=== PATIENT | male | born 1965 | race Caucasian/White ===

== ENCOUNTER 2021-06-01 06:47 | Day surgery (SDC) | payer MEDICAID ==
[2021-05-31 15:55] LABS: BASOPHILS # (AUTO) 0.1 X10'3 (0-0.2); BASOPHILS % (AUTO) 1.2 % (0-1); EOSINOPHILS # (AUTO) 0.4 X10'3 (0-0.9); EOSINOPHILS % (AUTO) 7.6 % (0-6); LYMPHOCYTES # (AUTO) 1.5 X10'3 (1.1-4.8); LYMPHOCYTES % (AUTO) 27.8 % (21-51); MEAN CORPUSCULAR HEMOGLOBIN 29.7 PG (27.0-31.0); MEAN CORPUSCULAR HGB CONC 33.7 g/dL (33.0-36.5); MEAN CORPUSCULAR VOLUME 88.1 FL (78-98); MONOCYTES # (AUTO) 0.4 X10'3 (0-0.9); NEUTROPHILS % (AUTO) 55.4 % (42-75); PRE OP HEMATOCRIT 42.2 % (42.0-52.0); PRE OP HEMOGLOBIN 14.2 g/dL (14.0-17.9); PRE OP PLATELET COUNT 264 X10'3 (140-440); RED BLOOD COUNT 4.79 X10'6 (4.70-6.10); RED CELL DISTRIBUTION WIDTH 14.9 % (11.5-14.5)
[2021-05-31 16:05] LABS: ALBUMIN 4.1 G/DL (3.4-5.0); ALBUMIN/GLOBULIN RATIO 1.2 (1.1-1.5); ALKALINE PHOSPHATASE 72 IU/L (46-116); BLOOD UREA NITROGEN 17 MG/DL (7-18); BUN/CREATININE RATIO 18.7 (5.4-32.0); CALCIUM 9.1 MG/DL (8.5-10.1); CHLORIDE 104 MMOL/L (99-107); CREATININE 0.91 MG/DL (0.60-1.10); PRE OP ALT 31 U/L (30-65); PRE OP ANION GAP 7 (8-16); PRE OP AST 15 U/L (10-37); PRE OP BILIRUB, TOTAL 0.3 MG/DL (0.0-1.0); PRE OP GLUCOSE 113 MG/DL (70-104); PRE OP POTASSIUM 3.9 MMOL/L (3.4-5.1); PRE OP SODIUM 140 MMOL/L (135-145); TOTAL CARBON DIOXIDE 29.1 MMOL/L (24-32); TOTAL PROTEIN 7.5 G/DL (6.4-8.2); eGFR 86 ML/MIN
[2021-06-01] VITALS (13 sets, daily range): BP systolic 110–136; BP diastolic 70–99
[~2021-06-01] VITALS: Ht 177.8 cm; Wt 80.1 kg
[~2021-06-01 06:47] MED LIST: NO HOME MEDS; cefazolin/dext.iso 2gm/50ml IV ONE; famotidine 20mg tablet PO ONE; ringers solution, lacted 1,000 ML IV SCH; sevoflurane 250ml liquid IH ONE
[2021-06-01] MEDS ORDERED: BUPIVAcaine/PF 2.5 mg/ml (0.25%) 30ml vial ONE (06:53)
[2021-06-01] MEDS ORDERED: LIDOcaine 1% 30ml preserv. free vial ONE (06:53)
[2021-06-01] MEDS ORDERED: meperidine/PF 25mg/ml syringe IV PRN ×3 (07:40)
[2021-06-01] MEDS ORDERED: proCHLORperazine 10 MG/2 ml inj IV PRN (07:40)
[2021-06-01] MEDS ORDERED: ringers solution, lacted 1,000 ML IV SCH (07:40)
[2021-06-01] MEDS ORDERED: ondansetron/PF 4mg/2ml inj IV PRN (07:40)
[2021-06-01] MEDS ORDERED: morphine 4 MG/ML inj SYRINge IV PRN (07:40)
[2021-06-01] MEDS ORDERED: morphine 2 MG/ML inj. syringe IV PRN (07:40)
[2021-06-01] MEDS ORDERED: fentaNYL/PF 50MCG/1 ML 2ML syringe ONE (09:34)
[2021-06-01] MEDS ORDERED: midazolam 1 mg/ML 2ml injection ONE (09:35)
[2021-06-01] MEDS ORDERED: propofol inj 20 ML IV ONE (09:37)
[2021-06-01] MEDS ORDERED: LIDOcaine 2% (20mg/ml) 5ml vial ONE (09:37)
[2021-06-01] MEDS ORDERED: ceFOXitin 1000 MG inj ONE (10:08)
[2021-06-01] MEDS ORDERED: acetaminophen 1,000mg/100ml IV 100 ML IV ONE (10:30)
[2021-06-01] MEDS ORDERED: ondansetron/PF 4mg/2ml inj ONE (10:30)
--- NOTE | 2021-06-01 10:48 | NUR ---
Received from OR via , accompanied by Anesthesiologist DR CHEN and report given by Anesthesiolgist. PT PRESENTS WITH 20 G LEFT AC, ABD DRESSING CLAEN DRY AND INTACT, VSS. Addendum: 06/01/21 at 1058 by Deisi Vidal RN, RN Amended: Links added.
[2021-06-01] MEDS ORDERED: HYDROcodone/acetaminophen 5mg/325mg tablet PO PRN (10:50)
--- NOTE | 2021-06-01 12:28 | NUR ---
PT MEETS ALL DC CRITERIA. IV DC'D WITH CATHETER INTACT. SC INSTRUCTIONS REVIEWED WITH PT, PT VERBALIZED UNDERSTANDING WITH NO FURTHER QUESTIONS AT THIS TIME. PT TAKE OUT IN A WHEELCHAIR TO PRIVATE VEHICLE WHERE WAS WAITING TO TAKE PT HOME. Addendum: 06/01/21 at 1328 by Deisi Vidal RN, RN Amended: Links added.
== END 2021-06-01 12:28 | disposition home or self-care (01) ==
LOC: PAS 06:47
PROVIDERS: ATTEND Surgery
DX: K37 Unspecified appendicitis (principal); Z20.822 Contact with and (suspected) exposure to COVID-19; Z79.899 Other long term (current) drug therapy; Z72.89 Other problems related to lifestyle
CPT/HCPCS: 36415; 44970; 80053; 82948; 85025; 87635; 93005; C9803; J0131; J0690; J0694; J2175; J2250; J2405; J2704; J3010; J3490; J7030; J7120; S2900; Z7506; Z7508; A4215; A4618